=== PATIENT | female | born 1975 | race Caucasian/White ===

== ENCOUNTER 2017-04-03 09:53 | Emergency (ER) | payer SELFPAY ==
[2017-04-03] MEDS ORDERED: Sodium Chloride 0.9% 1,000 ML IV STA (09:57)
[2017-04-03] MEDS ORDERED: Ondansetron 4 MG/2 ML SDV IVPUSH ONE (09:57)
[2017-04-03] MEDS ORDERED: Ondansetron 4 MG/2 ML SDV ONE (09:59)
--- NOTE | 2017-04-03 10:16 | EDM.PDOC ---
ED HPI GENERAL MEDICAL PROBLEM - General Chief Complaint: Gastrointestinal Problem Stated Complaint: vomitting Time Seen by Provider: 04/03/17 09:57 - History of Present Illness INITIAL COMMENTS - FREE TEXT/NARRATIVE: HISTORY AND PHYSICAL: History of present illness: Patient's 41-year-old female presents with a concern of cough nausea and vomiting worse over the last several days she denies abdominal pain denies fever chills concern she states this is been productive of green phlegm Review of systems: As per history of present illness and below otherwise all systems reviewed and negative. Past medical history: As per history of present illness and as reviewed below otherwise noncontributory. Surgical history: As per history of present illness and as reviewed below otherwise noncontributory. Social history: No reported history of drug or alcohol abuse. Family history: As per history of present illness and as reviewed below otherwise noncontributory. Physical exam: HEENT: Atraumatic, normocephalic, pupils reactive, negative for conjunctival pallor or scleral icterus, mucous membranes dry, throat clear, neck supple, nontender, trachea midline. Lungs: Clear to auscultation, breath sounds equal bilaterally, chest nontender. Heart: S1S2, regular, negative for clicks, rubs, or JVD. Abdomen: Soft, nondistended, nontender. Negative for masses or hepatosplenomegaly. Negative for costovertebral tenderness. Pelvis: Stable nontender. Genitourinary: Deferred. Rectal: Deferred. Extremities: Atraumatic, negative for cords or calf pain. Neurovascular unremarkable. Neuro: Awake, alert, oriented. Cranial nerves II through XII unremarkable. Cerebellum unremarkable. Motor and sensory unremarkable throughout. Exam nonfocal. Diagnostics: CBC CMP hCG chest x-ray Therapeutics: Normal saline 1 L bolus Zofran 8 mg IV Impression: #1 pneumonitis #2 hyperemesis with dehydration Definitive disposition and diagnosis as appropriate pending reevaluation and review of above. Bilateral Chest Pain Score (Numeric/FACES): 7 - Related Data Allergies Allergy/AdvReac Type Severity Reaction Status Date / Time Penicillins Allergy Anaphylactic Verified 04/03/17 10:00 Shock Home Meds: Home Meds . [Unable to Verify Home Med List] 04/03/17 [History] Past Medical History - Past Health History Medical/Surgical History: Denies Medical/Surgical History HEENT History: Reports: None Cardiovascular History: Reports: None Respiratory History: Reports: None Gastrointestinal History: Reports: None Genitourinary History: Reports: None [employer] History: Reports: None Musculoskeletal History: Reports: None Neurological History: Reports: None Psychiatric History: Reports: None Endocrine/Metabolic History: Reports: None Hematologic History: Reports: None Immunologic History: Reports: None Oncologic (Cancer) History: Reports: None Dermatologic History: Reports: None - Past Surgical History Head Surgeries/Procedures: Reports: None HEENT Surgical History: Reports: None Cardiovascular Surgical History: Reports: None Respiratory Surgical History: Reports: None GI Surgical History: Reports: None Female Surgical History: Reports: None Endocrine Surgical History: Reports: None Neurological Surgical History: Reports: None Musculoskeletal Surgical History: Reports: Other (See Below) Other Musculoskeletal Surgeries/Procedures:: Toe tendon repair Oncologic Surgical History: Reports: None Dermatological Surgical History: Reports: None Social & Family History - Family History Family Medical History: Noncontributory - Tobacco Use Smoking Status *Q: Current Every Day Smoker Years of Tobacco use: 15 Packs/Tins Daily: 0.5 Used Tobacco, but Quit: No Second Hand Smoke Exposure: No - Caffeine Use Caffeine Use: Reports: None - Alcohol Use Days Per Week of Alcohol Use: 0 Number of Drinks Per Day: 1 Total Drinks Per Week: 0 - Recreational Drug Use Recreational Drug Use: No ED ROS GENERAL - Review of Systems Review Of Systems: ROS reveals no pertinent complaints other than HPI. ED EXAM, GENERAL - Physical Exam Exam: See Below (The dictation) Course - Vital Signs Last Recorded V/S: Last Vital Signs Temp 36.6 C 04/03/17 10:01 Pulse 86 04/03/17 10:01 Resp 18 04/03/17 10:01 BP 137/71 04/03/17 10:01 Pulse Ox 98 04/03/17 10:01 - Orders/Labs/Meds Orders: Active Orders 24 hr Category Date Time Status Chest 1V Frontal [CR] Stat Exams 04/03/17 10:03 Taken UA W/MICROSCOPIC [URIN] Stat Lab 04/03/17 09:58 Uncollected Labs: Laboratory Tests 04/03/17 04/03/17 04/03/17 Range/Units 09:59 09:59 09:59 WBC 8.17 (4.0-11.0) K/uL RBC 5.23 (4.30-5.90) M/uL Hgb 17.1 H (12.0-16.0) g/dL Hct 48.1 H (36.0-46.0) % MCV 92.0 (80.0-98.0) fL MCH 32.7 H (27.0-32.0) pg MCHC 35.6 (31.0-37.0) g/dL RDW Std Deviation 44.3 (28.0-62.0) fl RDW Coeff of Booker 13 (11.0-15.0) % Plt Count 319 (150-400) K/uL MPV 9.10 (7.40-12.00) fL Neut % (Auto) 62.0 (48.0-80.0) % Lymph % (Auto) 30.1 (16.0-40.0) % Barbour % (Auto) 6.7 (0.0-15.0) % Eos % (Auto) 0.7 (0.0-7.0) % Baso % (Auto) 0.5 (0.0-1.5) % Neut # (Auto) 5.1 (1.4-5.7) K/uL Lymph # (Auto) 2.5 H (0.6-2.4) K/uL Barbour # (Auto) 0.6 (0.0-0.8) K/uL Eos # (Auto) 0.1 (0.0-0.7) K/uL Baso # (Auto) 0.0 (0.0-0.1) K/uL Nucleated RBC % 0.0 /100WBC Nucleated RBCs # 0 K/uL Sodium 138 (136-146) mmol/L Potassium 2.9 L (3.5-5.1) mmol/L Chloride 100 (98-110) mmol/L Carbon Dioxide 23 (21-31) mmol/L BUN 13 (6.0-23.0) mg/dL Creatinine 0.8 (0.6-1.5) mg/dL Est Cr Clr Drug Dosing 80.72 mL/min Estimated GFR (MDRD) > 60.0 ml/min Glucose 157 H (60-110) mg/dL Calcium 10.1 (8.8-10.8) mg/dL Total Bilirubin 0.5 (0.1-1.5) mg/dL AST 24 (5-40) IU/L ALT 21 (8-54) IU/L Alkaline Phosphatase 85 (40-150) Total Protein 8.7 H (6.0-8.0) g/dL Albumin 4.4 (3.5-5.0) g/dL Globulin 4.3 H (2.0-3.5) g/dL Albumin/Globulin Ratio 1.0 L (1.3-2.8) HCG, Qual NEGATIVE (NEG) Meds: Medications Discontinued Medications Generic Name Dose Route Start Last Admin Trade Name Freq PRN Reason Stop Dose Admin Diphenhydramine HCl 50 mg 04/03/17 10:17 04/03/17 10:22 Benadryl IVPUSH 04/03/17 10:18 50 mg ONETIME ONE Administration Sodium Chloride 1,000 mls @ 999 mls/hr 04/03/17 09:57 04/03/17 10:12 Normal Saline IV 04/03/17 10:57 999 mls/hr NOW STA Administration Metoclopramide HCl 5 mg 04/03/17 10:17 04/03/17 10:22 Reglan IVPUSH 04/03/17 10:18 5 mg ONETIME ONE Administration Ondansetron HCl 8 mg 04/03/17 09:57 04/03/17 10:12 Zofran IVPUSH 04/03/17 09:58 8 mg ONETIME ONE Administration Ondansetron HCl Confirm 04/03/17 09:59 04/03/17 10:07 Zofran Administered 04/03/17 10:00 Not Given Dose 8 mg .ROUTE .STK-MED ONE Departure - Departure Time of Disposition: 11:47 Disposition: Home, Self-Care 01 Condition: Good Clinical Impression: Viral syndrome, Hyperemesis, Hypokalemia - Discharge Information Referrals: PCP,None [Primary Care Provider] - Forms: ED Department Discharge Additional Instructions: The following information is given to patients seen in the emergency department who are being discharged to home. This information is to outline your options for follow-up care. We provide all patients seen in our emergency department with a follow-up referral. The need for follow-up, as well as the timing and circumstances, are variable depending upon the specifics of your emergency department visit. If you don't have a primary care physician on staff, we will provide you with a referral. We always advise you to contact your personal physician following an emergency department visit to inform them of the circumstance of the visit and for follow-up with them and/or the need for any referrals to a consulting specialist. The emergency department will also refer you to a specialist when appropriate. This referral assures that you have the opportunity for followup care with a specialist. All of these measure are taken in an effort to provide you with optimal care, which includes your followup. Under all circumstances we always encourage you to contact your private physician who remains a resource for coordinating your care. When calling for followup care, please make the office aware that this follow-up is from your recent emergency room visit. If for any reason you are refused follow-up, please contact the [facility] emergency department at and asked to speak to the emergency department charge nurse. [facility] [address] [place] [id number] [address] Zofran as prescribed push fluids clear liquids no dairy 72 hours follow- up primary medical doctor and/or clinic above call schedule routine appointment 1-2 days or return as needed as discussed - My Orders Last 24 Hours: My Active Orders 04/03/17 09:58 UA W/MICROSCOPIC [URIN] Stat 04/03/17 10:03 Chest 1V Frontal [CR] Stat - Assessment/Plan Last 24 Hours: My Active Orders 04/03/17 09:58 UA W/MICROSCOPIC [URIN] Stat 04/03/17 10:03 Chest 1V Frontal [CR] Stat
[2017-04-03] MEDS ORDERED: Metoclopramide 10 MG/2 ML SDV IVPUSH ONE (10:17)
[2017-04-03] MEDS ORDERED: diphenhydrAMINE 50 MG/ML SDV IVPUSH ONE (10:17)
[2017-04-03 10:33] LABS: CHLORIDE,CL 100 mmol/L (98-110); SODIUM,NA 138 mmol/L (136-146)
[2017-04-03 15:06] VITALS: BP 121/74
--- NOTE | 2017-04-04 15:09 | CR ---
EXAM DATE: 04/03/17 PATIENT'S AGE: 41 Patient: MIKE NEELY Facility: [place], [place] Site . Site : [id number] Study: XRay Chest [id number] 11:00:05 AM Ordering Physician: Ayla Alfonso Final Report: HISTORY: Cough. TECHNIQUE: One view of the chest. COMPARISON: No prior. FINDINGS: Cardiac size and pulmonary vasculature are within normal limits. There is no lung infiltrate or pulmonary edema. No pneumothorax or pleural effusion. IMPRESSION: No acute disease. Dictated by Sawyer Herrera MD @ 04/03/2017 11:08:15 AM Dictated by: Sawyer Herrera MD @ 04/03/2017 11:08:19 (Electronic Signature) Report Signed by Proxy. [facility]
== END 2017-04-03 12:05 | disposition home or self-care (01) ==
LOC: MW.ED 09:53
DX: J18.9 Pneumonia, unspecified organism (principal); E87.6 Hypokalemia; B34.9 Viral infection, unspecified; R11.10 Vomiting, unspecified; Z88.0 Allergy status to penicillin; F17.210 Nicotine dependence, cigarettes, uncomplicated
CPT/HCPCS: 36415; 71010; 80053; 84703; 85025; 96361; 96374; 96375; 99284; J1200; J2405; J2765; J7040

== ENCOUNTER 2018-09-12 22:42 | Emergency (ER) | payer SELFPAY ==
[2018-09-12] MEDS ORDERED: Sodium Chloride 0.9% 1,000 ML IV ONE (22:48)
[2018-09-12] MEDS ORDERED: Sodium Chloride 0.9% 10 ML Syringe FLUSH PRN (22:48)
[2018-09-12] MEDS ORDERED: Ondansetron 4 MG/2 ML SDV IVPUSH ONE (22:48)
[2018-09-12] MEDS ORDERED: Sodium Chloride 0.9% 2.5 ML Syringe FLUSH PRN (22:48)
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
[2018-09-12 23:39] LABS: CHLORIDE,CL 104 mmol/L (98-107); SODIUM,NA 140 mmol/L (136-145)
[2018-09-13 01:06] VITALS: BP 115/72
== END 2018-09-13 01:00 ==
LOC: MW.ED 22:42
DX: T42.6X2A Poisoning by other antiepileptic and sedative-hypnotic drugs, intentional self-harm, initial encounter (principal); Z88.0 Allergy status to penicillin
CPT/HCPCS: 36415; 80053; 80305; 81001; 81025; 84443; 85025; 93005; 96361; 96374; 99285; G0480; J2405; J7040